=== PATIENT | male | born 1945 | race Caucasian/White ===

== ENCOUNTER 2017-11-07 11:59 | Emergency (ER) | payer MEDICARE, OTHER ==
[2017-11-07 15:51] LABS: BASOPHILS 0.5 % (0-2); EOSINOPHILS 3.5 % (0-7); HEMOGLOBIN 14.4 g/dL (13.5-17.5); IMMATURE GRANULOCYTES 0.2 % (0-5); LYMPHOCYTES 47.3 % (15-50); MCH 31.9 pg (26.0-34.0); MCHC 34.3 g/dL (31.0-37.0); MCV 92.9 fL (80.0-100.0); MEAN PLATELET VOLUME 9.5 fL (7.4-10.4); NEUTROPHILS 38.5 % (40-80); PLATELET COUNT 194 10x3/uL (130-400); RBC 4.52 10x6/uL (4.20-6.10); RDW 12.3 % (11.5-14.5); WBC 6.1 10x3/uL (4.8-10.8)
[2017-11-07 16:11] LABS: ALBUMIN 3.3 g/dL (3.4-5.0); ALKALINE PHOSPHATASE 66 U/L (46-116); ALT (SGPT) 71 U/L (10-68); BILIRUBIN - TOTAL 0.52 mg/dL (0.2-1.3); CALC OSMOLALITY 279 mosm/kg (275-300); CARBON DIOXIDE 26.6 mmol/L (21.0-32.0); CHLORIDE - SERUM 103 mmol/L (98-107); CREATININE - SERUM 0.8 mg/dL (0.6-1.3); GLUCOSE 95 mg/dL (74-106); POTASSIUM - SERUM 3.9 mmol/L (3.5-5.1); PROTEIN - SERUM 7.6 g/dL (6.4-8.2); SODIUM 141 mmol/L (136-145); UREA NITROGEN 10 mg/dL (7-18); eGFR NON AFRICAN AMERICAN > 90 mL/min (90-120)
[2017-11-07 16:19] LABS: CREATINE KINASE 48 UL (21-232); PRO BNP 75 pg/mL (0-125); TROPONIN-I < 0.017 ng/mL (0.000-0.060)
[2017-11-07 16:21] LABS: INR 1.04 (0.85-1.17); PROTIME 13.2 SECONDS (11.6-15.0)
[2017-11-07 16:56] LABS: APPEARANCE CLEAR (CLEAR); BILIRUBIN NEGATIVE (NEGATIVE); COLOR YELLOW (YELLOW); GLUCOSE NEGATIVE (NEGATIVE); KETONE NEGATIVE (NEGATIVE); NITRITE NEGATIVE (NEGATIVE); PROTEIN NEGATIVE (NEGATIVE); UROBILINOGEN NORMAL (NORMAL)
== END 2017-11-07 18:06 | disposition home or self-care (01) ==
LOC: D.ER 11:59
PROVIDERS: Nurse Practitioner Family
DX: S20.212A Contusion of left front wall of thorax, initial encounter (principal); W19.XXXA Unspecified fall, initial encounter; Y93.89 Activity, other specified; Y92.019 Unspecified place in single-family (private) house as the place of occurrence of the external cause; R07.81 Pleurodynia; M54.5 Low back pain; I10 Essential (primary) hypertension

== ENCOUNTER 2019-05-07 16:24 | Inpatient (IN) | payer MEDICARE ==
[~2019-05-07] VITALS: Ht 193 cm; Wt 96.2 kg
[2019-05-07 17:12] LABS: BASOPHILS 0.4 % (0-2); HEMATOCRIT 40.6 % (42.0-54.0); HEMOGLOBIN 13.7 g/dL (13.5-17.5); IMMATURE GRANULOCYTES 0.3 % (0-5); LYMPHOCYTES 22.1 % (15-50); MCH 32.8 pg (26.0-34.0); MCHC 33.7 g/dL (31.0-37.0); MCV 97.1 fL (80.0-100.0); MEAN PLATELET VOLUME 9.5 fL (7.4-10.4); MONOCYTES 11.2 % (2-11); PLATELET COUNT 222 10x3/uL (130-400); RBC 4.18 10x6/uL (4.20-6.10); RDW 14.7 % (11.5-14.5); WBC 10.7 10x3/uL (4.8-10.8)
[2019-05-07 17:31] LABS: CALC OSMOLALITY 280 mosm/kg (275-300); CALCIUM 8.5 mg/dL (8.5-10.1); CHLORIDE - SERUM 101 mmol/L (98-107); POTASSIUM - SERUM 3.5 mmol/L (3.5-5.1); SODIUM 139 mmol/L (136-145); UREA NITROGEN 13 mg/dL (7-18); eGFR NON AFRICAN AMERICAN 78 mL/min (90-120)
[2019-05-07 17:36] LABS: ALBUMIN 3.8 g/dL (3.4-5.0); ALKALINE PHOSPHATASE 93 U/L (46-116); ALT (SGPT) 27 U/L (10-68); BILIRUBIN - TOTAL 1.38 mg/dL (0.2-1.3); CREATINE KINASE 162 UL (21-232); GLUCOSE 144 mg/dL (74-106); MAGNESIUM - SERUM 1.5 mg/dL (1.8-2.4); PROTEIN - SERUM 7.5 g/dL (6.4-8.2)
[2019-05-07 17:51] LABS: INR 1.04 (0.85-1.17); PROTIME 13.1 SECONDS (11.6-15.0)
--- NOTE | 2019-05-07 18:00 | NUR ---
DR. ROCKWELL AT BEDSIDE FOR ORTHO CONSULT.
[2019-05-07 20:18] VITALS: BP 158/77
[2019-05-07] MEDS ORDERED: ASPIRIN325 MG PO (20:59)
[2019-05-07] MEDS ORDERED: CYCLOBENZAPRINE10 MG PO (21:01)
[2019-05-07] MEDS ORDERED: OPTIVE SENSITI1 EACH EACH EYE (21:02)
[2019-05-07] MEDS ORDERED: STOOL SOFTENER240 MG PO (21:03)
[2019-05-07] MEDS ORDERED: NEURONTIN 300300 MG PO (21:04)
[2019-05-07] MEDS ORDERED: SYNTHROID25 MCG PO (21:04)
[2019-05-07] MEDS ORDERED: TOPROL XL50 MG PO (21:05)
[2019-05-07] MEDS ORDERED: SYNTHROID75 MCG PO (21:05)
[2019-05-07] MEDS ORDERED: REMERON15 MG PO (21:07)
[2019-05-07] MEDS ORDERED: OMEPRAZOLE20 M1 PO (21:08)
[2019-05-08] VITALS: BP 161/73
[2019-05-08 04:00] VITALS: BP 148/72
[2019-05-08 07:13] LABS: BASOPHILS 0.4 % (0-2); EOSINOPHILS 2.6 % (0-7); HEMATOCRIT 37.8 % (42.0-54.0); HEMOGLOBIN 12.5 g/dL (13.5-17.5); IMMATURE GRANULOCYTES 0.4 % (0-5); LYMPHOCYTES 27.3 % (15-50); MCH 32.2 pg (26.0-34.0); MCHC 33.1 g/dL (31.0-37.0); MCV 97.4 fL (80.0-100.0); MEAN PLATELET VOLUME 9.7 fL (7.4-10.4); MONOCYTES 10.8 % (2-11); NEUTROPHILS 58.5 % (40-80); PLATELET COUNT 219 10x3/uL (130-400); RBC 3.88 10x6/uL (4.20-6.10); RDW 14.8 % (11.5-14.5); WBC 8.4 10x3/uL (4.8-10.8)
--- NOTE | 2019-05-08 07:35 | NUR ---
AWAKE AND ALERT. ORIENTED X3. NO C/O AT THIS TIME. LUNGS ARE CLEAR BILATERALLY, NO COUGH NOTED. SKIN IS INTACT WITHOUT REDNESS. SL TO LEFT FOREARM IS PATENT WITHOUT REDNESS AT INSERTION SITE. DENIES NEEDS.
[2019-05-08 07:39] LABS: CALC OSMOLALITY 275 mosm/kg (275-300); CALCIUM 8.4 mg/dL (8.5-10.1); CARBON DIOXIDE 26.6 mmol/L (21.0-32.0); CHLORIDE - SERUM 102 mmol/L (98-107); CREATININE - SERUM 0.8 mg/dL (0.6-1.3); GLUCOSE 124 mg/dL (74-106); MAGNESIUM - SERUM 1.7 mg/dL (1.8-2.4); PHOSPHOROUS 3.3 mg/dL (2.5-4.9); POTASSIUM - SERUM 3.4 mmol/L (3.5-5.1); PRO BNP 168 pg/mL (0-125); SODIUM 137 mmol/L (136-145); UREA NITROGEN 14 mg/dL (7-18); eGFR NON AFRICAN AMERICAN > 90 mL/min (90-120)
[2019-05-08 07:41] LABS: THYROID STIMULATING HORMONE 57.71 uIU/mL (0.36-3.74)
[2019-05-08 08:05] LABS: APTT 26.9 SECONDS (22.8-39.4)
[2019-05-08 08:13] VITALS: BP 131/71
[2019-05-08 08:14] LABS: INR 0.99 (0.85-1.17); PROTIME 12.6 SECONDS (11.6-15.0)
--- NOTE | 2019-05-08 09:25 | NUR ---
REQUESTED AND GIVEN 2MG MORPHINE SLOW IVP FOR C/O RIGHT SHOULDER/ARM PAIN LEVEL 8. WILL MONITOR.
[2019-05-08 10:14] VITALS: Ht 193 cm; Wt 96.2 kg
[2019-05-08 11:00] LABS: APPEARANCE CLEAR (CLEAR); BACTERIA FEW /hpf (NEGATIVE); BILIRUBIN NEGATIVE (NEGATIVE); COLOR YELLOW (YELLOW); EPITHELIAL CELLS OCC /hpf (0-5); GLUCOSE NEGATIVE (NEGATIVE); KETONE NEGATIVE (NEGATIVE); MUCUS <1+ /lpf (NONE SEEN); NITRITE NEGATIVE (NEGATIVE); PROTEIN NEGATIVE (NEGATIVE); RED CELLS - URINE NONE SEEN /hpf (0-5); SPECIFIC GRAVITY 1.015 (1.005-1.020); UROBILINOGEN NORMAL (NORMAL); WHITE CELLS - URINE 0-5 /hpf (NEGATIVE)
[2019-05-08] MEDS ORDERED: ULTRAM50 MG PO (14:59)
--- NOTE | 2019-05-08 15:10 | NUR ---
REPORTS GOOD PAIN MANAGEMENT WITH USE OF ULTRAM.
--- NOTE | 2019-05-08 17:26 | NUR ---
REPORT CALLED TO [facility] ON REHAB. PATIENT WILL TRANSFER AFTER HE EATS DINNER. UNABLE TO SIGN PAPERWORK R/T HUMEROUS FRACTURE.
--- NOTE | 2019-05-08 17:58 | NUR ---
PATIENT DISCHARGED TO REHAB VIA WC TO ROOM 1111A. NO FAMILY HERE AT PRESENT BUT DAUGHTER AWARE OF TRANSFER. ALL BELONGINGS WITH PATIENT.
== END 2019-05-08 17:59 | DRG 562 ==
LOC: D.ER 16:24 → D.MS 18:43
PROVIDERS: Emergency Medicine; ADMIT Internal Medicine Nephrology; ATTEND Internal Medicine Nephrology
DX: S42.211A Unspecified displaced fracture of surgical neck of right humerus, initial encounter for closed fracture (principal); G93.41 Metabolic encephalopathy; W19.XXXA Unspecified fall, initial encounter; Z86.73 Personal history of transient ischemic attack (TIA), and cerebral infarction without residual deficits; E83.42 Hypomagnesemia; E80.6 Other disorders of bilirubin metabolism; E78.5 Hyperlipidemia, unspecified; I11.0 Hypertensive heart disease with heart failure; I50.9 Heart failure, unspecified; I25.10 Atherosclerotic heart disease of native coronary artery without angina pectoris; K21.9 Gastro-esophageal reflux disease without esophagitis; E03.9 Hypothyroidism, unspecified; Z87.891 Personal history of nicotine dependence

== ENCOUNTER 2019-05-08 17:00 | Inpatient (IN) | payer MEDICARE ==
[~2019-05-08] VITALS: Ht 193 cm; Wt 96.2 kg
[~2019-05-08 17:00] MED LIST: ASPIRIN325 MG PO; CYCLOBENZAPRINE10 MG PO; NEURONTIN 300300 MG PO; OMEPRAZOLE20 M1 PO; OPTIVE SENSITI1 EACH EACH EYE; REMERON15 MG PO; STOOL SOFTENER240 MG PO; SYNTHROID25 MCG PO; SYNTHROID75 MCG PO; TOPROL XL50 MG PO; ULTRAM50 MG PO
--- NOTE | 2019-05-08 19:57 | NUR ---
AWAKE AND ALERT. HERE FOR PHYSICAL REHAB AND SERVICES OF . ALERT AND ORIENTED. REPSIRATIONS UNALBORED. RIGHT ARM IN SLING. HX OF OLD CVA, STENTS FALLS, AND ETOH. SEE ADMISSION ASSESSMENT. SALINE LOCK INTACT TO LEFT FOREARM. NO SIGNS OF INFILTRATION. FAMILY AT BEDSIDE. CALL LIGHT IN REACH.
[2019-05-08 20:07] VITALS: BP 136/70; BMI 25.8
[2019-05-08 21:32] VITALS: BP 136/70
--- NOTE | 2019-05-09 03:14 | NUR ---
SLEEPING WITH NO DISTRESS NOTED. CALL LIGHT IN REACH.
--- NOTE | 2019-05-09 06:18 | NUR ---
QUIET HOURS. NO ACUTE CHANGES IN CONDITION THIS SHIFT. RIGHT ARM IN SLING. NO DISTRESS NOTED.
[2019-05-09 06:23] LABS: BASOPHILS 0.3 % (0-2); EOSINOPHILS 2.2 % (0-7); HEMOGLOBIN 12.9 g/dL (13.5-17.5); IMMATURE GRANULOCYTES 0.5 % (0-5); LYMPHOCYTES 28.6 % (15-50); MCH 32.5 pg (26.0-34.0); MCHC 33.9 g/dL (31.0-37.0); MCV 95.7 fL (80.0-100.0); MEAN PLATELET VOLUME 9.9 fL (7.4-10.4); MONOCYTES 8.5 % (2-11); NEUTROPHILS 59.9 % (40-80); PLATELET COUNT 234 10x3/uL (130-400); RBC 3.97 10x6/uL (4.20-6.10); RDW 14.4 % (11.5-14.5); WBC 9.6 10x3/uL (4.8-10.8)
[2019-05-09 07:22] LABS: CALC OSMOLALITY 273 mosm/kg (275-300); CALCIUM 8.4 mg/dL (8.5-10.1); CARBON DIOXIDE 25.9 mmol/L (21.0-32.0); CHLORIDE - SERUM 100 mmol/L (98-107); CREATININE - SERUM 0.7 mg/dL (0.6-1.3); GLUCOSE 128 mg/dL (74-106); POTASSIUM - SERUM 3.8 mmol/L (3.5-5.1); SODIUM 136 mmol/L (136-145); UREA NITROGEN 12 mg/dL (7-18); eGFR NON AFRICAN AMERICAN > 90 mL/min (90-120)
--- NOTE | 2019-05-09 08:00 | NUR ---
SHIFT ASSMT COMPLETED.BREAKFAST GIVEN.CL IN REACH.
[2019-05-09 08:34] VITALS: BP 107/69
[2019-05-09 13:34] VITALS: Ht 193 cm; Wt 96.2 kg
--- NOTE | 2019-05-09 20:20 | NUR ---
AWAKE AND ALERT. RESPIRATIONS UNLABORED. RIGHT ARM IN SLING. NO ACUTE DISTRESS NOTED. CALL LIGHT IN REACH.
[2019-05-09 21:12] VITALS: BP 136/60
--- NOTE | 2019-05-10 02:09 | NUR ---
AWAKE AND GOT OUT OF BED TO GO TO BATHROOM WITHOUT CALLING FOR ASSISTANCE. REMINDED TO ALWAYS CALL FOR ASSISTANCE BEFORE GETTING UP. STATES " OK. IM SORRY" ASSISTED TO BATHROOM AND BACK TO BED. SAFETY MEASURES IN PLACE. CALL LIGHT IN REACH.
--- NOTE | 2019-05-10 05:39 | NUR ---
QUIET HOURS. NO ACUTE CHANGES IN CONDITION THIS SHIFT. NO DISTERSS NOTED. SLING REMAINS IN PLACE TO RIGHT ARM. CALL LIGHT IN REACH.
[2019-05-10 07:46] LABS: BASOPHILS 0.3 % (0-2); EOSINOPHILS 2.7 % (0-7); HEMATOCRIT 37.9 % (42.0-54.0); HEMOGLOBIN 12.6 g/dL (13.5-17.5); IMMATURE GRANULOCYTES 0.4 % (0-5); LYMPHOCYTES 22.1 % (15-50); MCH 32.3 pg (26.0-34.0); MCHC 33.2 g/dL (31.0-37.0); MCV 97.2 fL (80.0-100.0); MEAN PLATELET VOLUME 9.8 fL (7.4-10.4); MONOCYTES 7.7 % (2-11); NEUTROPHILS 66.8 % (40-80); PLATELET COUNT 234 10x3/uL (130-400); RDW 14.4 % (11.5-14.5); WBC 9.5 10x3/uL (4.8-10.8)
[2019-05-10 07:51] LABS: CALC OSMOLALITY 274 mosm/kg (275-300); CALCIUM 8.6 mg/dL (8.5-10.1); CARBON DIOXIDE 28.4 mmol/L (21.0-32.0); CHLORIDE - SERUM 101 mmol/L (98-107); CREATININE - SERUM 0.7 mg/dL (0.6-1.3); GLUCOSE 140 mg/dL (74-106); POTASSIUM - SERUM 3.9 mmol/L (3.5-5.1); SODIUM 137 mmol/L (136-145); UREA NITROGEN 11 mg/dL (7-18); eGFR NON AFRICAN AMERICAN > 90 mL/min (90-120)
[2019-05-10 08:00] VITALS: BP 156/76
--- NOTE | 2019-05-10 08:15 | NUR ---
PT RESTING IN BED WITH EYES OPEN CALL LIGHT IN REACH NO PROBLEMS WILL MONITER
--- NOTE | 2019-05-10 16:37 | NUR ---
PATIENT ADMITTED TO REHAB FROM ACUTE FLOOR. DISCHARGE PLANS ARE FOR PATIENT TO RETURN HOME. HIS PCP IS A THE ME. WILL CONTINUE TO FOLLOW WITH PATIENT.
--- NOTE | 2019-05-10 17:47 | NUR ---
PT RESTING IN BED WITH EYES OPEN CALL LIGHT IN REACH NO PROBLEMS WILL MONITER
[2019-05-10 19:40] VITALS: BP 158/71
--- NOTE | 2019-05-10 19:40 | NUR ---
BEDSIDE REPORT COMPLETE. PT SITTING UP ON SIDE OF BED. ALERT AND ORIENTED X4. DENIES ANY NEEDS OR PAIN. VERY HARD OF HEARING. PLACED UPPER DENTURES IN DENTURE CUP TO SOAK. NO SIGNS OF ACUTE DISTRESS NOTED. VS STABLE. SHIFT ASSESSMENT COMPLETE. CL IN REACH. FALL PRECAUTIONS IN PLACE. WILL CONTINUE TO MONITOR
--- NOTE | 2019-05-11 00:54 | NUR ---
QUIET HOURS. PT LYING IN BED ON LEFT SIDE EYES CLOSED RESTING QUIETLY. RR EVEN AND UNLABORED. CL IN REACH
--- NOTE | 2019-05-11 03:55 | NUR ---
PT LYING IN BED ON LEFT SIDE EYES CLOSED RESTING. RR EVEN AND UNLABORED. CL IN REACH
[2019-05-11 08:01] VITALS: BP 159/77
--- NOTE | 2019-05-11 08:06 | NUR ---
ALERT AND ORIENTED. EATING BREAKFAST. NO C/O PAIN RESP EVEN AND UNLABORED. CL IN REACH.
--- NOTE | 2019-05-11 11:22 | NUR ---
PARTICIPATING IN THERAPY AT THIS TIME. NO C/O PAIN.
--- NOTE | 2019-05-11 15:13 | NUR ---
SHOWER PER OT AT THIS TIME.
--- NOTE | 2019-05-11 16:05 | NUR ---
NO CHANGE IN ASSESSMENT. RESTING WO DISTRESS. CL IN REACH.
[2019-05-11 19:20] VITALS: BP 166/79
--- NOTE | 2019-05-11 19:20 | NUR ---
BEDSIDE REPORT COMPLETE. PT LYING IN BED EYES CLOSED RESTING. EASILY AROUSED WITH VERBAL STIMULI. DENIES ANY NEEDS OR PAIN. ALERT AND ORIENTED X4. VS STABLE. SHIFT ASSESSMENT COMPLETE. NO SIGNS OF ACUTE DISTRESS NOTED. CL IN REACH. BED ALARM ON. FALL PRECAUTIONS IN PLACE. WILL CONTINUE TO MONITOR
--- NOTE | 2019-05-12 01:29 | NUR ---
QUIET HOURS. PT LYING IN BED SUPINE AWAKE AND ALERT. EMPTIED URINAL 500ML CLEAR YELLOW URINE. DENIES ANY NEEDS OR PAIN. RR EVEN AND UNLABORED.
--- NOTE | 2019-05-12 04:38 | NUR ---
PT LYING IN BED EYES CLOSED RESTING QUIETLY. RR EVEN AND UNLABORED. CL IN REACH
--- NOTE | 2019-05-12 07:12 | NUR ---
ALERT AND ORIENTED. NO DISTRESS NOTED. RESP EVEN AND UNLABORED. CL IN REACH.
[2019-05-12 09:42] VITALS: BP 137/72
--- NOTE | 2019-05-12 10:52 | NUR ---
NO C/O PAIN. SITTING IN WC AT THIS TIME. SLING TO R ARM. CL IN REACH.
--- NOTE | 2019-05-12 16:52 | NUR ---
NO CHANGE IN ASSESSMENT. RESTING IN BED WO DISTRESS. CL IN REACH.
[2019-05-12 19:25] VITALS: BP 150/76
--- NOTE | 2019-05-12 19:25 | NUR ---
BEDSIDE REPORT COMPLETE. PT SITTING UP IN BED VISITING WITH FAMILY. DENIES ANY NEEDS OR PAIN. NO SIGNS OF ACUTE DISTRESS NOTED. RIGHT ARM SLING ON PROPERLY. VS STABLE. SHIFT ASSESSMENT COMPLETE. CL IN REACH. FALL PRECAUTIONS IN PLACE. WILL CONTINUE TO MONITOR
--- NOTE | 2019-05-12 23:44 | NUR ---
QUIET HOURS. PT LYING IN BED EYES CLOSED RESTING QUIETLY. RR EVEN AND UNLABORED. CL IN REACH. BED ALARM ON
--- NOTE | 2019-05-13 03:40 | NUR ---
PT LYING IN BED AWAKE AND ALERT WATCHING TV. DENIES ANY NEEDS OR PAIN. URINAL EMPTIED 450ML CLEAR YELLOW URINE. CL IN REACH. BED ALARM ON
--- NOTE | 2019-05-13 05:35 | NUR ---
PT LYING IN BED AWAKE AND ALERT WATCHING MORNING NEWS. RR EVEN AND UNLABORED. DENIES ANY NEEDS OR PAIN. CL IN REACH
[2019-05-13 05:46] LABS: BASOPHILS 0.5 % (0-2); EOSINOPHILS 3.5 % (0-7); HEMATOCRIT 37.9 % (42.0-54.0); HEMOGLOBIN 12.7 g/dL (13.5-17.5); IMMATURE GRANULOCYTES 0.6 % (0-5); LYMPHOCYTES 25.9 % (15-50); MCH 32.5 pg (26.0-34.0); MCHC 33.5 g/dL (31.0-37.0); MCV 96.9 fL (80.0-100.0); MEAN PLATELET VOLUME 9.4 fL (7.4-10.4); MONOCYTES 9.9 % (2-11); NEUTROPHILS 59.6 % (40-80); PLATELET COUNT 261 10x3/uL (130-400); RBC 3.91 10x6/uL (4.20-6.10); RDW 14.3 % (11.5-14.5); WBC 8.2 10x3/uL (4.8-10.8)
[2019-05-13 06:14] LABS: ALKALINE PHOSPHATASE 90 U/L (46-116); ALT (SGPT) 32 U/L (10-68); BILIRUBIN - DIRECT 0.21 mg/dL (0.00-0.30); BILIRUBIN - INDIRECT 0.72 mg/dL (0.00-1.00); BILIRUBIN - TOTAL 0.93 mg/dL (0.2-1.3); CALC OSMOLALITY 278 mosm/kg (275-300); CALCIUM 8.8 mg/dL (8.5-10.1); CARBON DIOXIDE 27.2 mmol/L (21.0-32.0); CHLORIDE - SERUM 101 mmol/L (98-107); CREATININE - SERUM 0.8 mg/dL (0.6-1.3); GLUCOSE 153 mg/dL (74-106); POTASSIUM - SERUM 4.1 mmol/L (3.5-5.1); PROTEIN - SERUM 7.2 g/dL (6.4-8.2); SODIUM 138 mmol/L (136-145); UREA NITROGEN 12 mg/dL (7-18); eGFR NON AFRICAN AMERICAN > 90 mL/min (90-120)
[2019-05-13 07:54] VITALS: BP 131/78
--- NOTE | 2019-05-13 08:15 | NUR ---
PT RESTING IN BED WITH EYES OPEN CALL LIGHT IN REACH NO PROBLEMS WILL MONITER
--- NOTE | 2019-05-13 13:56 | NUR ---
Nutrition Follow-up: Diet: Regular PO intake: ~100%; reports appetite is "just fine" but c/o constipation. States last BM was 7-8 days ago. Per chart review pt with documented BM yesterday and today? Wt: 212# (05/09/19) Labs noted: Glu 153. Significant meds: remeron, colace. Continue current nutrition regimen. Consider bowel regimen if pt truly with constipation. RD Following.
--- NOTE | 2019-05-13 19:10 | NUR ---
BEDSIDE REPORT COMPLETE. PT SITTING UP IN BED WATCHING TV. DENIES ANY NEEDS OR PAIN. ALERT AND ORIENTED X4. NO SIGNS OF ACUTE DISTRESS NOTED. RIGHT ARM SLING ON PROPERLY. LEFT KNUCKLE SKIN TEARS OPEN TO AIR, HEALING WELL SCABBED OVER. NO REDNESS, DRAINAGE OR SWELLING. VS STABLE. SHIFT ASSESSMENT COMPLETE. CL IN REACH. FALL PRECAUTIONS IN PLACE. WILL CONTINUE TO MONITOR
[2019-05-13 21:12] VITALS: BP 150/72
--- NOTE | 2019-05-13 23:13 | NUR ---
QUIET HOURS. PT LYING IN BED SUPINE EYES CLOSED RESTING. RR EVEN AND UNLABORED. CL IN REACH. BED ALARM ON
--- NOTE | 2019-05-14 03:33 | NUR ---
PT LYING IN BED WATCHING TV. RR EVEN AND UNLABORED. DENIES ANY NEEDS. CL IN REACH. BED ALARM ON
--- NOTE | 2019-05-14 06:35 | NUR ---
PT LYING IN BED EYES CLOSED RESTING. RR EVEN AND UNLABORED. CL IN REACH. BED ALARM ON
[2019-05-14 08:27] VITALS: BP 182/93
--- NOTE | 2019-05-14 11:34 | NUR ---
I have reviewed this patient and I concur with the Shift Assessment completed by the Licensed Practical Nurse today this shift.
--- NOTE | 2019-05-14 15:51 | NUR ---
PT RESTING IN BED WITH EYES OPEN CALL LIGHT IN REACH WILL MONITER
--- NOTE | 2019-05-14 19:34 | NUR ---
AWAKE AND ALERT. WAS SITTING IN WHEELCHAIR AND REQUESTED TO GET IN BED. ASSISTED TO BED. RIGHT ARM IN SLING. NO DISTRESS NOTED. CALL LIGHT IN REACH.
[2019-05-14 21:36] VITALS: BP 146/73
--- NOTE | 2019-05-15 00:17 | NUR ---
SLEEPING WITH RESPIRATIONS UNLABORED. NO DISTRESS NOTED. CALL LIGHT IN REACH.
--- NOTE | 2019-05-15 03:29 | NUR ---
CONTINUES SLEEPING WITH NO DISTRESS NOTED.
--- NOTE | 2019-05-15 05:11 | NUR ---
QUIET HOURS. NO DISTRESS NOTED. NO CHANGES IN CONDITION. CALL LIGHT IN REACH.
[2019-05-15 06:17] LABS: BASOPHILS 0.6 % (0-2); CALC OSMOLALITY 276 mosm/kg (275-300); CARBON DIOXIDE 31.6 mmol/L (21.0-32.0); CHLORIDE - SERUM 100 mmol/L (98-107); CREATININE - SERUM 0.9 mg/dL (0.6-1.3); EOSINOPHILS 4.6 % (0-7); GLUCOSE 193 mg/dL (74-106); HEMATOCRIT 38.5 % (42.0-54.0); HEMOGLOBIN 12.7 g/dL (13.5-17.5); IMMATURE GRANULOCYTES 0.8 % (0-5); LYMPHOCYTES 26.5 % (15-50); MCH 32.6 pg (26.0-34.0); MEAN PLATELET VOLUME 10.1 fL (7.4-10.4); MONOCYTES 8.8 % (2-11); NEUTROPHILS 58.7 % (40-80); POTASSIUM - SERUM 4.1 mmol/L (3.5-5.1); RBC 3.89 10x6/uL (4.20-6.10); RDW 14.3 % (11.5-14.5); SODIUM 136 mmol/L (136-145); UREA NITROGEN 13 mg/dL (7-18); WBC 6.3 10x3/uL (4.8-10.8); eGFR NON AFRICAN AMERICAN 88 mL/min (90-120)
[2019-05-15 06:21] LABS: PLATELET COUNT 319 10x3/uL (130-400)
[2019-05-15 08:34] VITALS: BP 168/82
--- NOTE | 2019-05-15 14:23 | NUR ---
SITTING IN WC. NO C/O PAIN. CL IN REACH.
--- NOTE | 2019-05-15 16:17 | NUR ---
NO CHANGE IN ASSESSMENT. PAIN MED GIVEN. ST IN ROOM. CL IN REACH.
[2019-05-15 19:30] VITALS: BP 159/79
--- NOTE | 2019-05-15 19:30 | NUR ---
BEDSIDE REPORT COMPLETE. ASSISTED PT WITH TRANSFER FROM W/C TO BED SBA. DENIES ANY NEEDS. C/O MILDER UPPER EXTREMITY DISCOMFORT. REQUESTS PAIN MEDICATION IF AVAILABLE WITH HS MEDS. RR EVEN AND UNLABORED. VS STABLE. SHIFT ASSESSMENT COMPLETE. CL IN REACH. FALL PRECAUTIONS IN PLACE. WILL CONTINUE TO MONITOR
--- NOTE | 2019-05-15 23:25 | NUR ---
QUIET HOURS. PT LYING IN BED EYES CLOSED RESTING COMFORTABLY. RR EVEN AND UNLABORED. CL IN REACH. BED ALARM ON.
--- NOTE | 2019-05-16 02:31 | NUR ---
PT LYING IN BED ON LEFT SIDE EYES CLOSED RESTING. RR EVEN AND UNLABORED. CL IN REACH. BED ALARM ON
--- NOTE | 2019-05-16 06:27 | NUR ---
PT LYING IN BED WATCHING MORNING NEWS. DENIES ANY NEEDS OR PAIN. RR EVEN AND UNLABORD. CL IN REACH. BED ALARM ON.
[2019-05-16 08:00] VITALS: BP 176/88
--- NOTE | 2019-05-16 08:15 | NUR ---
PT RESTING IN BED WITH EYES OPEN CALL LIGHT IN REACH WILL MONITER
--- NOTE | 2019-05-16 18:00 | NUR ---
I have reviewed this patient and I concur with the Shift Assessment completed by the Licensed Practical Nurse today this shift.
--- NOTE | 2019-05-16 18:12 | NUR ---
PT RESTING IN BED WITH EYES OPEN CALL LIGHT IN REACH NO PROBLEMS WILL MONITER
--- NOTE | 2019-05-16 19:35 | NUR ---
BEDSIDE REPORT COMPLETE. PT SITTING UP IN BED WATCHING TV. ALERT AND ORIENTED X4. DENIES ANY NEEDS OR PAIN. RR EVEN AND UNLABORED. VS STABLE. SHIFT ASSESSMENT COMPLETE. CL IN REACH. BED ALARM ON. WILL CONTINUE TO MONITOR
[2019-05-16 20:34] VITALS: BP 141/77
--- NOTE | 2019-05-17 00:40 | NUR ---
QUIET HOURS. PT LYING IN BED SUPINE EYES CLOSED RESTING QUIETLY. RR EVEN AND UNLABORED. CL IN REACH. BED ALARM ON.
--- NOTE | 2019-05-17 03:57 | NUR ---
PT LYING IN BED EYES CLOSED RESTING QUIETLY. RR EVEN AND UNLABORED. CL IN REACH. BED ALARM ON.
--- NOTE | 2019-05-17 06:39 | NUR ---
PT LYING IN BED AWAKE AND WATCHING TV. DENIES ANY NEEDS OR PAIN. RR EVEN AND UNLABORED. CL IN REACH. BED ALARM ON
[2019-05-17 07:32] VITALS: BP 151/80
[2019-05-17 07:47] LABS: BASOPHILS 0.6 % (0-2); EOSINOPHILS 3.5 % (0-7); HEMOGLOBIN 13.3 g/dL (13.5-17.5); IMMATURE GRANULOCYTES 0.8 % (0-5); LYMPHOCYTES 25.3 % (15-50); MCH 32.7 pg (26.0-34.0); MCHC 33.3 g/dL (31.0-37.0); MCV 98.3 fL (80.0-100.0); MEAN PLATELET VOLUME 9.6 fL (7.4-10.4); MONOCYTES 10.1 % (2-11); NEUTROPHILS 59.7 % (40-80); PLATELET COUNT 356 10x3/uL (130-400); RBC 4.07 10x6/uL (4.20-6.10); RDW 14.2 % (11.5-14.5); WBC 8.6 10x3/uL (4.8-10.8)
--- NOTE | 2019-05-17 08:00 | NUR ---
PATIENT SITTING UP AT BEDSIDE IN WHEELCHAIR. ALERT WITH CONFUSION AT TIMES. CHAIR ALARM ON. CALL LIGHT WITHIN REACH. VOICES NO NEEDS AT THIS TIME. WILL CONTINUE WITH PLAN OF CARE
[2019-05-17 08:11] LABS: CALC OSMOLALITY 274 mosm/kg (275-300); CALCIUM 9.2 mg/dL (8.5-10.1); CARBON DIOXIDE 33.1 mmol/L (21.0-32.0); CHLORIDE - SERUM 98 mmol/L (98-107); CREATININE - SERUM 0.9 mg/dL (0.6-1.3); POTASSIUM - SERUM 4.7 mmol/L (3.5-5.1); SODIUM 136 mmol/L (136-145); UREA NITROGEN 14 mg/dL (7-18); eGFR NON AFRICAN AMERICAN 88 mL/min (90-120)
[2019-05-17 08:12] LABS: GLUCOSE 134 mg/dL (74-106)
--- NOTE | 2019-05-17 09:42 | NUR ---
PATIENT IN REHAB ROOM. WORKING WITH PHYSICAL THERAPIST
--- NOTE | 2019-05-17 10:52 | NUR ---
NUTRITION F/U PT OOR TO THERAPY. TOLERATING REG DIET WITH 100% INTAKE RECENT MEALS. WILL CONTINUE TO HONOR FOOD PREFERENCES , MONITOR PO INTAKE. RD FOLLOWING
--- NOTE | 2019-05-17 15:31 | NUR ---
PATIENT LYING IN BED AFTER THERAPY, WATCHING TV. BED ALARM ON
--- NOTE | 2019-05-17 15:59 | NUR ---
PATIENT IS PROGRESSING IN THERAPY. TENATIVE DISCHARGE DATE IS 05/23/19. PATIENT HAS TO BE ABLE TO WALK UP 2 STAIRS IN ORDER TO DISCHARGE HOME. WILL CONTINUE TO FOLLOW WITH PATIENT
--- NOTE | 2019-05-17 17:54 | NUR ---
I have reviewed this patient and I concur with the Shift Assessment completed by the Licensed Practical Nurse today this shift.
[2019-05-17 19:21] VITALS: BP 154/73
--- NOTE | 2019-05-17 19:54 | NUR ---
AWAKE AND ALERT. RESTING IN BED WITH SLING IN PLACE TO RIGHT ARM. RESPIRATIONS UNLABORED. NO DISTRESS NOTED. MEDICATED FOR PAIN IN BACK. SEE MAR. CALL LIGHT IN REACH.
--- NOTE | 2019-05-18 01:40 | NUR ---
SLEEPING WITH RESPIRATIONS UNLABORED. NO DISTRESS NOTED. CALL LIGHT IN REACH.
--- NOTE | 2019-05-18 05:11 | NUR ---
QUIET HOURS. UP SEVERAL TIMES TO BATHROOM THIS SHIFT. NOW RESTING IN BED. SLING IN PLACE TO RIGHT ARM, NO ACUTE CHANGES IN CONDITION THIS SHIFT. NO DISTRESS NOTED.
[2019-05-18 08:00] VITALS: BP 158/81
--- NOTE | 2019-05-18 08:00 | NUR ---
SHIFT ASSMT COMPLETED.RIGHT ARM IN SLING.BREAKFAST GIVEN.DENIES NEEDS.
--- NOTE | 2019-05-18 12:00 | NUR ---
SITTING UP IN ROOM;BACK FROM THERAPY.LUNCH GIVEN.
--- NOTE | 2019-05-18 16:00 | NUR ---
AWAKE UP OOB TO WC.ROLLS SELF INTO BATHROOM BUT CAN NOT REMEMBER TO CALL FOR NEEDS OR LOCK WC IN PLACE TO SAFELY TRANSFER.
[2019-05-18 19:25] VITALS: BP 156/73
--- NOTE | 2019-05-18 23:38 | NUR ---
SLEEPING WITH RESPIRATIONS UNLABORED. NO DISTRESS NOTED.
--- NOTE | 2019-05-19 03:04 | NUR ---
RESTING IN BED WITH RESPIRATIONS UNLABORED. NO DISTRESS NOTED. CALL LIGHT IN REACH.
--- NOTE | 2019-05-19 06:29 | NUR ---
QUIET HOURS. NO ACUTE CHANGES IN CONDITION THIS SHIFT. RIGHT ARM REMAINS IN SLING. NO DISTRESS NOTED.
[2019-05-19 08:00] VITALS: BP 138/72
--- NOTE | 2019-05-19 08:00 | NUR ---
SHIFT ASSMT COMPLETED.BREAKFAST GIVEN.CL IN REACH.
--- NOTE | 2019-05-19 12:00 | NUR ---
FINISHED SHOWER.SITTING UP IN WC.LUNCH GIVEN.
[2019-05-19 19:34] VITALS: BP 178/86
--- NOTE | 2019-05-19 19:39 | NUR ---
AWAKE AND ALERT. ASSISTED TO BATHROOM AND BACK TO BED. SLING IN PLACE TO RIGHT ARM. RESPIRATIONS UNLABORED. NO DISTRESS NOTED.
--- NOTE | 2019-05-19 23:11 | NUR ---
SLEEPING WITH RESPIRATIONS UNLABORED. NO DISTRESS NOTED. CALL LIGHT IN REACH.
--- NOTE | 2019-05-20 03:27 | NUR ---
CONTINUES SLEEPING WITH RESPIRATIONS UNLABORED. NO DISTRESS NOTED.
--- NOTE | 2019-05-20 05:04 | NUR ---
QUIET HOURS. RIGHT ARM REMAINS IN SLING. NO ACUTE CHANGES IN CONDITION THIS SHIFT. RESTING IN BED WITH NO DISTRESS NOTED.
[2019-05-20 06:25] LABS: BASOPHILS 0.4 % (0-2); HEMATOCRIT 38.8 % (42.0-54.0); IMMATURE GRANULOCYTES 1.1 % (0-5); LYMPHOCYTES 25.9 % (15-50); MCH 32.7 pg (26.0-34.0); MCHC 33.5 g/dL (31.0-37.0); MCV 97.7 fL (80.0-100.0); MEAN PLATELET VOLUME 9.6 fL (7.4-10.4); NEUTROPHILS 61.6 % (40-80); PLATELET COUNT 374 10x3/uL (130-400); RBC 3.97 10x6/uL (4.20-6.10); RDW 13.9 % (11.5-14.5); WBC 9.2 10x3/uL (4.8-10.8)
[2019-05-20 06:35] LABS: CALC OSMOLALITY 275 mosm/kg (275-300); CALCIUM 8.7 mg/dL (8.5-10.1); CARBON DIOXIDE 29.1 mmol/L (21.0-32.0); CHLORIDE - SERUM 100 mmol/L (98-107); GLUCOSE 143 mg/dL (74-106); POTASSIUM - SERUM 4.7 mmol/L (3.5-5.1); SODIUM 136 mmol/L (136-145); UREA NITROGEN 18 mg/dL (7-18); eGFR NON AFRICAN AMERICAN 78 mL/min (90-120)
--- NOTE | 2019-05-20 07:48 | NUR ---
ALERT AND ORIENTED. EATING BREAKFAST. NO C/O PAIN. RESP EVEN AND UNLABORED.
[2019-05-20 07:55] VITALS: BP 154/76
--- NOTE | 2019-05-20 09:24 | RHP ---
PATIENT: ENIO WHITAKER MEDICAL RECORD: [id number] ACCOUNT: [id number] LOCATION:[facility] : 43 ADMISSION DATE: 05/08/19 REHABILITATION HISTORY AND PHYSICAL EXAMINATION POST ADMISSION PHYSICIAN EXAMINATION DATE OF ADMISSION: 05/08/2019. ADMITTING DIAGNOSIS: Metabolic encephalopathy. HISTORY OF PRESENT ILLNESS: The patient is admitted through the Emergency Room Department on 05/07/2019 for confusion after a fall. He also had right shoulder pain and right arm injury. He had extreme bruising to his upper extremity and decreased mobility. He had a little trouble getting from wheelchair to examining bed, but was having a lot of pain. His speech was difficult to understand at times. He was dragging his right lower extremity at times. He had a blood sugar of 144. He had a decreased potassium and elevated ammonia level. Right shoulder x-ray showed a comminuted fracture of the right humeral neck with mild displacement. There was also periosteal new bone and early callus formation suggesting subacute nature. He had no distal clavicular fracture and small right-sided rib fractures as well. There was a diffuse soft tissue swelling of his right shoulder and upper arm. He was admitted with orthopedic consult with recommended plan for nonoperative treatment, but due to his frequent falls, pain control, nonweightbearing status on his right upper extremity, sling, it was decided to stay in the hospital. Previously, he was living with his adult son, was independent with ADLs and mobility. He uses a rolling walker and cane at times, but rarely. He states he still drives. He was confused. He was conversive and answers were mostly corrected, but at times definitely had changes consistent with encephalopathy. He is mod to max assist for ADLs and mobility secondary to poor balance, proximal muscle weakness, lower extremity weakness, and unsteady almost ataxic gait at times in a sling. COMORBIDITIES: Include a fall with injury, fracture of the right humerus, acute metabolic encephalopathy, hypomagnesemia, electrolyte abnormalities, history of CVA in the past, hypertension, dyslipidemia, CHF, coronary artery disease, chronic back pain, gastroesophageal reflux disease, hypothyroidism, history of osteoarthritis and gastroesophageal reflux disease. PAST MEDICAL HISTORY: Significant for CVA, hypertension, CHF, CO in the past. He has had coronary artery disease with stent placement, reflux, arthritis, chronic lumbago, previous fractures. PAST SURGICAL HISTORY: Includes stent placement and bilateral hand surgeries. ALLERGIES: PENICILLIN AND CODEINE. CURRENT MEDICATIONS: Include aspirin 325 mg daily, but he states he takes an 81 at home, Protonix 20 mg daily, Synthroid 100 mcg daily, artificial tears 2 drops q.i.d., Remeron 15 mg q.h.s., metoprolol 50 mg b.i.d., Neurontin 300 mg t.i.d., Colace 240 mg b.i.d., Flexeril 10 mg t.i.d., and tramadol right now for pain. States he does take Vicodin at home. HABITS: Denies alcohol or tobacco use at this time. FAMILY HISTORY: Noncontributory. HISTORY AND PHYSICAL [id number] ENIO WHITAKER SOCIAL HISTORY: The patient hopes to return back home, live with his family members and get better. REVIEW OF SYSTEMS: GENERAL: Does complain of some weakness and fatigue. HEENT: Denies cold, cough, or congestion. CARDIOVASCULAR: Denies chest pain. PHYSICAL EXAMINATION: VITAL SIGNS: Stable, afebrile. GENERAL: Elderly gentleman in no acute distress, alert upon exam. HEENT: Normocephalic and atraumatic. Mucosa moist. NECK: Supple. No lymphadenopathy. LUNGS: Clear at this time. No wheezing, rhonchi, or rales. HEART: Regular rate and rhythm. He does have a II/ systolic ejection murmur. ABDOMEN: Soft, benign, nondistended. Positive bowel sounds times 4. EXTREMITIES: Does have his right upper extremity in a sling, previous bruising, and skin changes noted. NEUROLOGIC: He is mostly intact. He does have noted weakness. LABORATORY DATA: White count is 9.6, H&H 12.9 and 38, and platelet count is noted to be 234. Sodium is 136, potassium 3.8, BUN and creatinine of 12 and 0.7, blood sugar is noted to be 128. ASSESSMENT: A 73-year-old gentleman admitted to the rehab with a working diagnosis of metabolic encephalopathy. The patient has potential to make improvement. We instituted the following multidisciplinary therapies to include, but not limited to physical, occupational, respiratory, speech, nutritional services, prosthetics and orthotics. Given his complex medical condition and risk for more complications, rehabilitation services cannot be provided at a low level of care such as intermediate facility. PLAN: 1. Admit to [facility] rehab for intensive inpatient therapy to include the following disciplines: A. Physical therapy to improve gait, all transfer skills and bed mobility to a modified independent level. B. Occupational therapy to improve activities of daily living to a modified independent level. C. Case management to assist with discharge planning and placement options. D. Nutrition to assist with nutritional needs. E. Rehabilitation nursing to assist in monitoring the patient's current medical conditions and to assist with any type of bowel or bladder management. 2. The patient's current medication and medical care will be continued. 3. The patient will be continued on appropriate medications. 4. I will see again in the a.m. TRANSINT:[id number] Voice Confirmation ID: [id number] DOCUMENT ID: [id number] 05/20/2019 Edited for kalie LAU. SID notes whether there has been none or any medical/functional change since admission: - No change since preadmission screen. HISTORY AND PHYSICAL [id number] ENIO WHITAKER attests patient continues to be appropriate for IRF: - Continues to be appropriate. RANDY ERWIN MD at 0924 CC: [id number] DICTATION DATE: 05/09/19 0838 GRAIN OILSEED OR PASTURE FARM WORKER: 05/09/19 0940 ADM IN [facility] [address] [place] [address]
--- NOTE | 2019-05-20 12:39 | NUR ---
RESTING IN ROOM. FAMILY AT BS. CL IN REACH. INCREASED PAIN R [id number].
--- NOTE | 2019-05-20 19:25 | NUR ---
BEDSIDE REPORT COMPLETE. PT SITTING UP IN W/C WATCHING TV. DENIES ANY NEEDS OR PAIN. ALERT AND ORIENTED X4. NO SIGNS OF ACUTE DISTRESS NOTED. VS STABLE. SHIFT ASSESSMENT COMPLETE. CL IN REACH. CHAIR ALARM ON. WILL CONTINUE TO MONITOR
[2019-05-20 21:06] VITALS: BP 152/77
--- NOTE | 2019-05-20 23:16 | NUR ---
QUIET HOURS. PT LYING IN BED ON LEFT SIDE EYES CLOSED RESTING QUIETLY. RR EVEN AND UNLABORED. CL IN REACH
--- NOTE | 2019-05-21 05:33 | NUR ---
PT LYING IN BED WATCHING TV. DENIES ANY NEEDS. CL IN REACH. BED ALARM ON
[2019-05-21 07:47] VITALS: BP 143/76
--- NOTE | 2019-05-21 07:58 | NUR ---
ALERT AND ORIENTED. IN THERAPY ROOM EATING BREAKFAST AT THIS TIMED. NO C/O PAIN.
--- NOTE | 2019-05-21 10:51 | NUR ---
IN THERAPY AT THIS TIME. NO DISTRESS NOTED.
--- NOTE | 2019-05-21 13:30 | NUR ---
Nutrition Follow-up: Diet: Regular PO intake: 100%; reports good appetite Last BM = 05/20/19. Wt: 212# (05/09/19), no new wt. Significant meds: bactrim, linzess, miralax, remeron. Labs noted: Glu 143. Noted "mild cellulitis on elbow" from chart review. Continue current nutrition regimen. RD Following.
--- NOTE | 2019-05-21 16:29 | NUR ---
NO CHANGE IN ASSESSMENT. NO C/O PAIN AT THIS TIME. CL IN REACH.
--- NOTE | 2019-05-21 19:39 | NUR ---
GREETED PATIENT AND INTRODUCED MYSELF HIS NURSE. PATIENT IS SITTING IN WHEELCHAIR WATCHING TV. RESPIRATIONS EVEN. NO S/S OF DISTRESS. CALL LIGHT IN REACH. STATES NO PAIN AT THIS TIME.
[2019-05-21 21:29] VITALS: BP 157/77
--- NOTE | 2019-05-22 00:30 | NUR ---
PT. RESTING QUIETLY WITH EYES CLOSED. RESPIRATIONS EVEN. NO S/S OF DISTRESS. CALL LIGHT IN REACH.
[2019-05-22 06:46] LABS: BASOPHILS 0.7 % (0-2); EOSINOPHILS 3.5 % (0-7); HEMATOCRIT 40.2 % (42.0-54.0); IMMATURE GRANULOCYTES 1.5 % (0-5); LYMPHOCYTES 27.6 % (15-50); MCH 31.9 pg (26.0-34.0); MCHC 32.3 g/dL (31.0-37.0); MCV 98.8 fL (80.0-100.0); MEAN PLATELET VOLUME 9.4 fL (7.4-10.4); MONOCYTES 8.3 % (2-11); NEUTROPHILS 58.4 % (40-80); PLATELET COUNT 420 10x3/uL (130-400); RBC 4.07 10x6/uL (4.20-6.10); RDW 13.8 % (11.5-14.5); WBC 9.5 10x3/uL (4.8-10.8)
[2019-05-22 06:53] LABS: CALC OSMOLALITY 277 mosm/kg (275-300); CARBON DIOXIDE 29.8 mmol/L (21.0-32.0); CHLORIDE - SERUM 100 mmol/L (98-107); CREATININE - SERUM 0.9 mg/dL (0.6-1.3); GLUCOSE 153 mg/dL (74-106); POTASSIUM - SERUM 4.8 mmol/L (3.5-5.1); SODIUM 137 mmol/L (136-145); UREA NITROGEN 16 mg/dL (7-18); eGFR NON AFRICAN AMERICAN 88 mL/min (90-120)
--- NOTE | 2019-05-22 08:00 | NUR ---
SHIFT ASSMT COMPLETED.
[2019-05-22 08:18] VITALS: BP 166/85
--- NOTE | 2019-05-22 16:34 | NUR ---
CARE TEAM MEETING: PATIENT PROGRESSING WELL IN THERAPY DISCHARGE PLANS ARE FOR HIM TO DISCHARGE IN AM TO HIS HOME. PATIENT CHOICE FORM GIVEN WITH HANDOUT AND COMPARE DATA REVIEWED WITH PATIENT REGARDING HOME HEALTH. PATIENT VOICED UNDERSTANDING.[facility] FORM SIGNED AND COPY GIVEN TO HIM . WILL CONTINUE TO FOLLOW WITH PATIENT.
--- NOTE | 2019-05-22 19:25 | NUR ---
GREETED PATIENT AND INTRODUCED MYSELF HIS NURSE. PATIENT IS SITTING ON SIDE OF BED AT THIS TIME. RESPIRATIONS EVEN. NO S/S OF DISTRESS. DENIES ANY NEEDS AT THIS TIME. CALL LIGHT IN REACH.
[2019-05-22 19:54] VITALS: BP 146/73
--- NOTE | 2019-05-22 23:03 | NUR ---
PT. RESTING QUIETLY WITH EYES CLOSED. RESPIRATIONS EVEN. NO S/S OF DISTRESS. SR UP X 2. BED IN LOWEST POSITION. CALL LIGHT IN REACH.
[2019-05-23 08:00] VITALS: BP 147/86
--- NOTE | 2019-05-23 08:00 | NUR ---
SHIFT ASSMT COMPLETED.BREAKFAST GIVEN.CL IN REACH.PLAN TO DC HOME TODAY.
[2019-05-23] MEDS ORDERED: BACTRIM DS PO (08:45)
[2019-05-23] MEDS ORDERED: HYDROCODON-ACE1 EAC7 PO (08:46)
--- NOTE | 2019-05-23 10:30 | NUR ---
PATIENT DISCHARGING HOME TODAY WITH FAMILY. [facility] WILL PROVIDE THERAPY AT HOME. [facility] WILL DELIVER A STEPHANIE WALKER TO PATIENT. HE HAS AN [facility]PPOINTMENT WITH [facility] 05/28/19 @ 1:00, DR. ROCKWELL/MARCELO 06/06/19 @ 2:00. DISCHARGE INSTRUCTIONS HAS BEEN FAXED TO PCP, HOME HEALTH AND REVIEWED WITH PATIENT PER PRIMARY NURSE.
--- NOTE | 2019-05-23 12:00 | NUR ---
EATING LUNCH.REVIEWED MEDS AND SERVICES FROM HOME HEALTH AND F/U APPTS.[facility] DELIVERED STEPHANIE WALKER.
--- NOTE | 2019-05-23 13:05 | NUR ---
DISCHARGED WITH STEPHANIE WALKER IN CARE OF SON.REMAINING DOSES OF BACTRIUM CALLED INTO [facility].
== END 2019-05-23 13:05 | disposition home or self-care (01) | DRG 71 ==
LOC: D.REHAB 17:00
PROVIDERS: ADMIT Emergency Medicine; ATTEND Emergency Medicine
DX: G93.41 Metabolic encephalopathy (principal); L03.119 Cellulitis of unspecified part of limb; S42.301D Unspecified fracture of shaft of humerus, right arm, subsequent encounter for fracture with routine healing; W19.XXXD Unspecified fall, subsequent encounter; E83.42 Hypomagnesemia; E87.8 Other disorders of electrolyte and fluid balance, not elsewhere classified; K21.9 Gastro-esophageal reflux disease without esophagitis; M19.90 Unspecified osteoarthritis, unspecified site; E03.9 Hypothyroidism, unspecified; I11.0 Hypertensive heart disease with heart failure; I50.9 Heart failure, unspecified; I25.10 Atherosclerotic heart disease of native coronary artery without angina pectoris